=== PATIENT | male | born 2000 | race Caucasian/White ===

== ENCOUNTER 2018-10-05 12:19 | Emergency (ER) | payer MEDICAID ==
--- NOTE | 2018-10-05 13:21 | ED PDOC ---
HPI: General Adult Time Seen by Provider: 10/05/18 12:49 Chief Complaint (Nursing): ENT Problem Chief Complaint (Provider): Right Ear Pain History Per: Patient History/Exam Limitations: no limitations Onset/Duration Of Symptoms: Days (x2) Current Symptoms Are (Timing): Still Present Additional Complaint(s): 18 year old male presents to the ED for evaluation of right ear pain for two days. Patient reports three days ago, his throat started hurting, and it subsequently moved to his right ear the next day, causing it to sound like water was stuck in the ear. Secondary to the pain, he notes putting hydrogen peroxide in the ear and trying to clean with a q-tip, which caused slight bleeding that has since ceased. Otherwise denies fever and decreased appetite. PMD: none provided Past Medical History Reviewed: Historical Data, Nursing Documentation, Vital Signs Vital Signs: Last Vital Signs Temp 98.8 F 10/05/18 12:43 Pulse 98 H 10/05/18 12:43 Resp 18 10/05/18 12:43 BP 150/84 10/05/18 12:43 Pulse Ox 99 10/05/18 12:43 - Medical History PMH: No Chronic Diseases - Surgical History Surgical History: No Surg Hx - Family History Family History: States: Unknown Family Hx - Social History Current smoker - smoking cessation education provided: Yes (some days) Alcohol: None Drugs: Denies - Home Medications Home Medications: Ambulatory Orders Medication Instructions Recorded Amoxicillin/Clavulanate [Augmentin 1 tab PO BID #20 tab 10/05/18 875 MG-125 MG] Ciprofloxacin/Dexamethasone 4 drop AD BID #1 bottle 10/05/18 [Ciprodex Otic] - Allergies Allergies/Adverse Reactions: Allergies Allergy/AdvReac Type Severity Reaction Status Date / Time No Known Allergies Allergy Verified 06/19/15 08:59 Review of Systems ROS Statement: Except As Marked, All Systems Reviewed And Found Negative Constitutional: Negative for: Fever ENT: Positive for: Ear Pain (right) Physical Exam - Reviewed Nursing Documentation Reviewed: Yes Vital Signs Reviewed: Yes - Physical Exam Appears: Positive for: No Acute Distress Head Exam: Positive for: ATRAUMATIC, NORMOCEPHALIC Skin: Positive for: Normal Color, Warm ENT: Positive for: TM Is/Are (left: unremarkable; right: intact, but deep external ear canal is erythematous), Other (edematous uvula). Negative for: Pharyngeal Erythema, Tonsillar Exudate, Tonsillar Swelling Neck: Positive for: Normal, Painless ROM, Supple Cardiovascular/Chest: Positive for: Regular Rate, Rhythm Respiratory: Positive for: Normal Breath Sounds. Negative for: Crackles, Rales, Rhonchi, Wheezing, Respiratory Distress Neurologic/Psych: Positive for: Alert, Oriented (x3) - ECG O2 Sat by Pulse Oximetry: 99 (RA) Pulse Ox Interpretation: Normal Medical Decision Making Medical Decision Making: Time: 1322 Initial Impression: ear infection, r/o flu, r/o strep Initial Plan: --Influenza A B swab --Rapid strep swab 1411 Patient strep positive and flu negative. Will be given antibiotic ear drops and PO antibiotics. Instructed to follow up with his PMD or the clinic. Scribe Attestation: Documented by Viktoria Ku, acting as a scribe for Rajendra Christian PA-C. Provider Scribe Attestation: All medical record entries made by the Scribe were at my direction and personally dictated by me. I have reviewed the chart and agree that the record accurately reflects my personal performance of the history, physical exam, medical decision making, and the department course for this patient. I have also personally directed, reviewed, and agree with the discharge instructions and disposition. Disposition - Clinical Impression Clinical Impression: Acute ear pain, Streptococcal sore throat, Acute ear infection - Patient ED Disposition Is Patient to be Admitted: No Doctor Will See Patient In The: Office Counseled Patient/Family Regarding: Studies Performed, Diagnosis, Need For Foll owup, Rx Given - Disposition Referrals: [facility] [Outside] Disposition: Routine/Home Disposition Time: 14:19 Condition: STABLE Prescriptions: Amoxicillin/Clavulanate [Augmentin 875 MG-125 MG] 1 tab PO BID #20 tab Ciprofloxacin/Dexamethasone [Ciprodex Otic] 4 drop AD BID #1 bottle Instructions: Outer Ear Infection (DC), Strep Throat (DC) Forms: [employer] (Romansh)
[2018-10-05 15:03] VITALS: BP 138/82; PULSE 92; RESP 16; TEMP 98.4; O2SAT 98
[2018-10-05] MEDS ORDERED: Ciprofloxacin/Dexamethasone OTIC SUSP AD SCH (17:00)
== END 2018-10-05 15:02 | disposition home or self-care (01) ==
LOC: H.ER 12:19
DX: H66.91 Otitis media, unspecified, right ear (principal); J02.0 Streptococcal pharyngitis